=== PATIENT | female | born 1995 | race American Indian/Alaskan Native ===

== ENCOUNTER 2020-06-09 20:40 | Inpatient (IN) | payer OTHER ==
[2020-06-09] MEDS ORDERED: OXYTOCIN DRIP 30,000 MILLIUNITS/500 ML BAG IV ONE (20:43)
[2020-06-09] MEDS ORDERED: LIDOCAINE (2%) 20 MG/1 ML VIAL 20 ML MDV INFILTRATI ONE ×2 (20:44→21:18)
[2020-06-09] MEDS ORDERED: fentaNYL 100 MCG/2 ML INJ ONE (20:50)
--- NOTE | 2020-06-09 21:15 | History and Physical Report ---
History of Present Illness Date of examination: 06/09/20 Date of admission: 06/09/20 20:40 Chief complaint: precipitous labor History of present illness: delivered in OB triage Brien Villafuerte MD Past History - Obstetrical History Expected Date of Delivery: 06/11/20 Actual Gestation: 39 Week(s) 6 Day(s) : 1 Medications and Allergies Allergies Allergy/AdvReac Type Severity Reaction Status Date / Time latex Allergy Intermediate Hives Verified 06/09/20 13:56 Latex, Natural Rubber Allergy Hives Verified 06/09/20 13:56 Home Medications Medication Instructions Recorded Confirmed Last Taken Type One Daily Tablet 1 tab PO QDAY 06/09/20 06/09/20 06/09/20 10:00 History - Vital Signs Vital signs: Vital Signs Pulse BP 85 136/86 06/09/20 20:50 06/09/20 20:50 Temp Pulse Resp BP Pulse Ox 75 132/58 06/09/20 21:05 06/09/20 21:05 Results Result Diagrams: 06/10/20 09:35 All other labs normal.
[2020-06-09] MEDS ORDERED: MINERAL OIL 30 ML ORAL LIQD PO PRN (21:18)
[2020-06-09] MEDS ORDERED: TERBUTALINE 1 MG/1 ML INJ SUB-Q PRN (21:18)
[2020-06-09] MEDS ORDERED: ePHEDrine SULFATE 50 MG/1 ML INJ IV PRN (21:18)
--- NOTE | 2020-06-09 21:18 | Procedure Note ---
OB Delivery Note - Delivery Date of Delivery: 06/09/20 Surgeon: TIMMY EDUARDO Estimated blood loss: 500cc - Vaginal Delivery position: OA Intrapartum events: precipitous labor- <3hr Delivery comments: viable male delivered in OB triage prior to my arrival in the room. I arrived for spontaneous delivery of an intact placenta and repair of second degree perineal/vaginal and bilateral labial lacerations with 2-0 vicryl. EBL 500ml Firm fundus stable throughout no additional complications all sponge, needle and instrument counts correctx2 mom received 15ml lidocaine and Fentanyl during the repair stable to baby to NICS for transition Brien Eduardo MD
[2020-06-09] MEDS ORDERED: diphenhydrAMINE 25 MG CAP PO PRN (21:20)
[2020-06-09] MEDS ORDERED: ONDANSETRON 4 MG/2 ML INJ IV PRN (21:20)
[2020-06-09] MEDS ORDERED: HYDROCORTISONE 25 MG RECTAL SUPP PR PRN (21:20)
[2020-06-09] MEDS ORDERED: LANOLIN/ZINC/DIMETHICONE (LANSINOH) 7 GM TP PRN (21:20)
[2020-06-09] MEDS ORDERED: PROMETHAZINE 25 MG RECT SUPP PR PRN (21:20)
[2020-06-09] MEDS ORDERED: PROMETHAZINE 25 MG TAB PO PRN (21:20)
[2020-06-09] MEDS ORDERED: KETOROLAC 30 MG/1 ML INJ IV PRN (21:20)
[2020-06-09] MEDS ORDERED: ACETAMINOPHEN 325 MG TAB PO PRN (21:20)
[2020-06-09] MEDS ORDERED: MAGNESIUM HYDROXIDE (MOM) ORAL LIQD UDC PO PRN (21:20)
[2020-06-09] MEDS ORDERED: WITCH HAZEL/ GLYCERIN PAD TP PRN (21:20)
[2020-06-09] MEDS ORDERED: LACTATED RINGERS 1,000 ML IV SCH (21:30)
[2020-06-09] MEDS ORDERED: OXYTOCIN DRIP 30 UNITS/500 ML BAG IV SCH ×2 (22:00)
[2020-06-09] MEDS: HYDROcodone/ACETAMINOPHEN 5-325 MG TAB PO PRN (22:31)
[2020-06-09 22:34] LABS: Hematocrit 41.5 % (30.3-42.9); Hemoglobin 13.9 gm/dl (10.1-14.3); Mean Corpuscular HGB Conc 33 % (30-34); Mean Corpuscular Volume 103 fl (79-97); Platelet Count 275 K/mm3 (140-440); Red Blood Count 4.04 M/mm3 (3.65-5.03); Red Cell Distribution Width 12.8 % (13.2-15.2)
[2020-06-10] MEDS: SENNOSIDES/DOCUSATE SODIUM 8.6/50 MG TAB PO SCH ×3 (00:29→22:03)
[2020-06-10] MEDS: DOCUSATE SODIUM 100 MG CAP PO SCH ×3 (00:29→22:03)
[2020-06-10] MEDS: IBUPROFEN 600 MG TAB PO SCH ×4 (05:38→23:52)
[2020-06-10] MEDS: PRENATAL VIT27-FE FUMARATE-FOLIC ACID VIT TAB PO SCH (09:35)
[2020-06-10] MEDS: HYDROcodone/ACETAMINOPHEN 5-325 MG TAB PO PRN (09:39)
[2020-06-10 10:11] LABS: Hemoglobin 10.9 gm/dl (10.1-14.3)
--- NOTE | 2020-06-10 10:37 | Progress Note ---
Assessment and Plan A: day 1 S/P . Anemia. P: Supplement with iron. Anticipate discharge home tomorrow if patient continues to do well. Subjective - Subjective Date of service: 06/10/20 Principal diagnosis: day 1 S/P Interval history: Doing well. No complaints. Patient reports: appetite normal, voiding normally, pain well controlled, flatus, ambulating normally, no dizzy ambulation, no nauseated : doing well Objective - Vital Signs Latest vital signs: Vital Signs Temp Pulse Resp BP BP Pulse Ox 06/10/20 08:15 98.3 F 74 18 114/62 100 06/10/20 05:38 20 06/10/20 04:18 98.2 F 87 20 110/56 98 06/10/20 00:25 98.6 F 78 18 97 06/09/20 23:31 18 06/09/20 22:31 18 06/09/20 22:05 64 124/59 06/09/20 21:53 18 06/09/20 21:50 69 125/58 06/09/20 21:35 66 125/61 06/09/20 21:21 66 130/60 06/09/20 21:05 75 132/58 06/09/20 20:50 85 136/86 Intake and Output 06/09/20 06/10/20 06/10/20 23:59 07:59 15:59 Intake Total 240 Output Total 400 Balance -160 Intake: Oral 240 Output: Urine 400 Void 400 Other: Total, Intake Amount 240 Total, Output Amount 400 # Voids Void 1 Weight 95.254 kg - Exam Cardiovascular: Present: Regular rate, No murmurs Lungs: Present: Clear to auscultation Abdomen: Present: normal appearance, soft. Absent: distention, tenderness, guarding, rigidity Uterus: Present: normal, firm, fundal height below umbilicus. Absent: bogginess, tenderness Extremities: Present: normal. Absent: tenderness, edema - Labs Labs: Abnormal lab results 06/09/20 Range/Units 21:15 WBC 11.2 H (4.5-11.0) K/mm3 MCV 103 H (79-97) fl MCH 34 H (28-32) pg RDW 12.8 L (13.2-15.2) %
[2020-06-10] MEDS: FERROUS SULFATE 325 MG TAB PO SCH ×2 (11:26→22:03)
[2020-06-10] MEDS ORDERED: BENZOCAINE/MENTHOL 20/0.5% TOP SPRAY 56 GM TP PRN (14:49)
[2020-06-11] MEDS: IBUPROFEN 600 MG TAB PO SCH ×2 (05:52→12:00)
--- NOTE | 2020-06-11 06:56 | Progress Note ---
Assessment and Plan A: day 2 S/P . Anemia. P: Discharge patient home today. Discussed with patient discharge instructions and warning signs. Advised patient to continue taking her vitamins and iron supplements at home. Advised patient to avoid intercourse, lifting, and housework. Advised patient to follow up at [facility] in 1 week. Patient voiced understanding of all instructions. Subjective - Subjective Date of service: 06/11/20 Principal diagnosis: day 2 S/P Interval history: Doing well. No complaints. Patient requests discharge home today. Patient reports: appetite normal, voiding normally, pain well controlled, flatus, ambulating normally, no dizzy ambulation, no nauseated [place]: doing well Objective - Vital Signs Latest vital signs: Vital Signs Temp Pulse Resp BP BP Pulse Ox 06/11/20 06:46 18 06/11/20 05:52 18 06/11/20 00:52 18 06/11/20 00:51 97.9 F 72 20 113/52 98 06/10/20 23:52 18 06/10/20 16:15 97.5 F L 88 18 118/62 99 06/10/20 12:30 98.1 F 78 18 106/54 97 06/10/20 08:15 98.3 F 74 18 114/62 100 Intake and Output 06/10/20 06/10/20 06/11/20 15:59 23:59 07:59 Intake Total 360 360 Balance 360 360 Intake: Oral 240 Intake, Free Water 360 120 Other: Total, Intake Amount 240 # Voids Void 1 2 - Exam Cardiovascular: Present: Regular rate Lungs: Present: Clear to auscultation Abdomen: Present: normal appearance, soft. Absent: distention, tenderness, guarding, rigidity Uterus: Present: normal, firm, fundal height below umbilicus. Absent: bogginess, tenderness Extremities: Present: normal. Absent: tenderness
--- NOTE | 2020-06-11 06:59 | Discharge Summary ---
Providers - Providers Date of Admission: 06/09/20 20:40 Date of discharge: 06/11/20 Attending physician: ITMMY EDUARDO MD Primary care physician: TIMMY EDUARDO MD Hospitalization Reason for admission: active labor Delivery: Laceration: 1st degree, 2nd degree Other procedures: none complications: none Discharge diagnosis: IUP at term delivered [place] baby: male Condition at discharge: Good Disposition: DC-01 TO HOME OR SELFCARE - Discharge Diagnoses (1) Term delivered Status: Acute (2) Anemia Status: Acute Plan - Provider Discharge Summary Activity: routine, no sex for 6 weeks, no heavy lifting 4 weeks, no strenuous exercise Diet: routine Instructions: routine Additional instructions: Continue taking your vitamins and iron supplements at home. Follow up at [facility] in 1 week. Call your doctor immediately for: * Fever > 100.5 * Heavy vaginal bleeding ( >1 pad per hour) * Severe persistent headache * Shortness of breath * Reddened, hot, painful area to leg or breast - Follow up plan Follow up: TIMMY EDUARDO MD [Primary Care Provider] - 7 Days
[2020-06-11] MEDS: FERROUS SULFATE 325 MG TAB PO SCH (10:34)
[2020-06-11] MEDS: DOCUSATE SODIUM 100 MG CAP PO SCH (10:34)
[2020-06-11] MEDS: PRENATAL VIT27-FE FUMARATE-FOLIC ACID VIT TAB PO SCH (10:34)
[2020-06-11] MEDS: SENNOSIDES/DOCUSATE SODIUM 8.6/50 MG TAB PO SCH (10:34)
[2020-06-11 13:19] VITALS: BP 121/72
== END 2020-06-11 14:40 | disposition home or self-care (01) | DRG 775 ==
LOC: LD 20:40 → OB 06-10 00:19
PROVIDERS: ADMIT Obstetrics & Gynecology; ATTEND Obstetrics & Gynecology
PROC: 10E0XZZ Delivery of Products of Conception, External Approach (ICD-10-PCS; principal; 2020-06-09)
DX: O62.3 Precipitate labor (principal); Z37.0 Single live birth; Z3A.39 39 weeks gestation of pregnancy; D64.9 Anemia, unspecified; Z20.822 Contact with and (suspected) exposure to COVID-19
CPT/HCPCS: 36415; 59025; 85014; 85018; 85027; 86592; 86706; 86762; 86850; 86900; 86901; 87806; G0378; J2270; J2590; J3010; J3410; U0003